=== PATIENT | female | born 1975 | race African-American/Black ===

== ENCOUNTER 2019-04-07 19:14 | Emergency (ER) | payer SELFPAY ==
[~2019-04-07] VITALS: Ht 154.9 cm; Wt 49.9 kg
[2019-04-07 19:32] VITALS: BP 172/90
[2019-04-07 19:41] LABS: BILIRUBIN,URINE SMALL (NEG); CLARITY,URINE CLEAR; COLOR,URINE AMBER; NITRITE,URINE NEGATIVE (NEG); PH,URINE 5.5; PROTEIN,URINE NEGATIVE (NEG-TRACE)
[2019-04-07 19:52] LABS: BACTERIA,URINE 0 /HPF (0-FEW); RBC,URINE 0 /HPF (0-2); SQUAMOUS EPITHELIAL CELL,UR OCC /LPF; WBC,URINE OCC /HPF (0-4)
--- NOTE | 2019-04-07 21:21 | PHYS DOC ---
Past Medical History Past Medical History: No Pertinent History Past Surgical History: No Surgical History Alcohol Use: Occasionally Drug Use: None Adult General Chief Complaint Chief Complaint: PAIN ON URINATION HPI HPI Patient is a 43 year old female no significant medical history who presents to the ED today complaining of generalized lower abdominal pain, urgency, frequency, dysuria, symptoms began 2 days ago. Also complaining of vomiting. Denies any chance she is . Denies any concerns for STDs. Review of Systems Review of Systems Constitutional: Denies fever or chills [] Eyes: Denies change in visual acuity, redness, or eye pain [] HENT: Denies nasal congestion or sore throat [] Respiratory: Denies cough or shortness of breath [] Cardiovascular: No additional information not addressed in HPI [] GI: Reports lower abdominal pain, vomiting, denies bloody stools or diarrhea [] reports dysuria, denies hematuria [] Musculoskeletal: Denies back pain or joint pain [] Integument: Denies rash or skin lesions [] Neurologic: Denies headache, focal weakness or sensory changes [] All other systems were reviewed and found to be within normal limits, except as documented in this note. Allergies Allergies Allergies Coded Allergies Type Severity Reaction Last Updated Verified No Known Drug Allergies 06/04/18 No Physical Exam Physical Exam Constitutional: Well developed, well nourished, no acute distress, non-toxic appearance. [] HENT: Normocephalic, atraumatic, bilateral external ears normal, oropharynx moist, no oral exudates, nose normal. [] Eyes: PERRLA, EOMI, conjunctiva normal, no discharge. [] Neck: Normal range of motion, no tenderness, supple, no stridor. [] Cardiovascular:Heart rate regular rhythm, no murmur [] Lungs & Thorax: Bilateral breath sounds clear to auscultation [] Abdomen: Bowel sounds normal, soft, no tenderness, no masses, no pulsatile masses. [] Pelvic exam External pelvic appears normal, cervix is visualized, closed, no CMT, no adnexal tenderness, trace amount of brownish discharge in the vaginal vault. Skin: Warm, dry, no erythema, no rash. [] Back: No tenderness, no CVA tenderness. [] Extremities: No tenderness, no cyanosis, no clubbing, ROM intact, no edema. [] Neurologic: Alert and oriented X 3, normal motor function, normal sensory funct ion, no focal deficits noted. [] Psychologic: Affect normal, judgement normal, mood normal. [] Current Patient Data Vital Signs Vital Signs Date Time Temp Pulse Resp B/P (MAP) Pulse Ox O2 Delivery O2 Flow Rate FiO2 04/07/19 19:32 98.2 94 16 172/90 (117) 99 Room Air 98.2 Lab Values Laboratory Tests Test 04/07/19 19:25 Urine Color Kerry Urine Clarity Clear Urine pH 5.5 Urine Specific Whitt 1.025 Urine Protein Negative mg/dL (NEG-TRACE) Urine Glucose (UA) Negative mg/dL (NEG) Urine Ketones (Stick) 40 mg/dL (NEG) Urine Blood Negative (NEG) Urine Nitrite Negative (NEG) Urine Bilirubin Small (NEG) Urine Urobilinogen Dipstick 1.0 mg/dL (0.2 mg/dL) Urine Leukocyte Esterase Negative (NEG) Urine RBC 0 /HPF (0-2) Urine WBC Occ /HPF (0-4) Urine Squamous Epithelial Cells Occ /LPF Urine Bacteria 0 /HPF (0-FEW) Microbiology 04/07/19 Wet Prep - Final, Complete EKG EKG [] Radiology/Procedures Radiology/Procedures [] Course & Med Decision Making Course & Med Decision Making Pertinent Labs and Imaging studies reviewed. (See chart for details) This is a 43-year-old female patient presented to the ED today with complaints of urgency, frequency, dysuria, lower abdominal pain, vomiting. Negative urine hCG, urine analysis is negative for infection. Wet prep noted for BV-discharge and Flagyl Pelvic ultrasound preliminary read noted for multiple fibroids, and endometrium cyst. Patient is discharged to home, provided OB for follow-up. Provided return precautions and discharged in stable condition. Dragon Disclaimer Dragon Disclaimer This electronic medical record was generated, in whole or in part, using a voice recognition dictation system. Departure Departure Impression: Primary Impression: Bacterial vaginosis Additional Impression: Fibroids Disposition: HOME, SELF-CARE Condition: STABLE Referrals: NO PCP (PCP) MAX DE ANDA MD follow up in 1 week Patient Instructions: Bacterial Vaginosis, [id number], Fibroids, [id number] Additional Instructions: You were evaluated in the emergency room, your urine analysis is negative for any infection, your ultrasound was noted for fibroids in the uterus, you also noted for endometrium cyst, these need to be followed up with an [facility], we provided you one. Take the prescribed medications as ordered. Ensure you complete your antibiotics for bacterial vaginosis. Scripts Tramadol Hcl (TRAMADOL HCL) 50 Mg Tablet 50 MG PO Q6HRS PRN for PAIN, #10 TAB Prov: GLENNA GOLDEN APRN 04/07/19 Metronidazole (FLAGYL) 500 Mg Tablet 1 TAB PO BID, #14 TAB Prov: GLENNA GOLDEN APRN 04/07/19 Problem Qualifiers GLENNA GOLDEN APRN Apr 07, 2019 21:21
[2019-04-07] MEDS ORDERED: METR500T PO (21:30)
[2019-04-07] MEDS ORDERED: TRAM50TA PO (21:30)
--- NOTE | 2019-04-07 21:45 | RAD ---
Ultrasound pelvis complete and transvaginal ultrasound HISTORY: Lower abdominal pain Sonographic examination was performed of the pelvis by transabdominal and endovaginal technique. Multiple static images were obtained. Ultrasound pelvis complete transabdominal: Uterus and ovaries are not seen by transabdominal technique. Transvaginal ultrasound pelvis: The myometrium of the uterus is heterogeneous. The endometrium measures 5 mm in thickness and there is a 2 x 3 mm cyst. There is 2 fibroids posterior fibroid measures 12 x 10 x 11 mm. Anterior fibroid measures 14 x 12 x 12 mm. The ovaries appear normal normal blood flow. The right ovary measures 2.6 x 1.8 x 1.1 cm. Left ovary measures 2.7 x 1.7 x 1.0 cm. There is no free fluid. IMPRESSION: 1. Fibroids in the uterus. 2. Heterogeneity of the myometrium is likely secondary to adenomyosis but may be incidental. 3. Small cyst in the endometrium. 4. No acute findings. This interpretation assumes the patient is not . Electronically signed by: Ralph Quiroga III, MD (04/07/2019 9:42 PM) [facility]
== END 2019-04-07 21:42 | disposition home or self-care (01) ==
LOC: ER 19:14
DX: N76.0 Acute vaginitis (principal); B96.89 Other specified bacterial agents as the cause of diseases classified elsewhere; D25.9 Leiomyoma of uterus, unspecified; R11.10 Vomiting, unspecified
CPT/HCPCS: 76830; 76856; 81001; 87491; 87591; 99285; Q0111

== ENCOUNTER 2019-05-16 03:48 | Emergency (ER) | payer SELFPAY ==
[~2019-05-16] VITALS: Ht 154.9 cm; Wt 49.9 kg
[~2019-05-16 03:48] MED LIST: METR500T PO; TRAM50TA PO
[2019-05-16 04:00] VITALS: BP 172/90
[2019-05-16] MEDS ORDERED: NEOMY/BACITR/POLYMYXIN OINT PACKET. TP ONE (04:30)
[2019-05-16] MEDS ORDERED: DIPHTH,PERTUSS(ACELL),TET TOX 0.5 ML DISP.SYRIN. VAX IM ONE (04:30)
[2019-05-16] MEDS ORDERED: LIDOCAINE 2%/EPI 1:100,000 20 ML VIAL. IJ ONE (04:30)
--- NOTE | 2019-05-16 05:02 | PHYS DOC ---
Past Medical History Past Medical History: No Pertinent History Past Surgical History: Additional Information: Nonsmoker Alcohol Use: Occasionally Drug Use: None Adult General Chief Complaint Chief Complaint: LACERATION/AVULSION HPI HPI 43-year-old female presents with report of finger laceration to palmar aspect of distal right middle finger which occurred just prior to arrival. 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 Patient reports significant bleeding to wound. Reports last tetanus shot greater than 5 years ago. Denies other complaint. Review of Systems Review of Systems Constitutional: Denies fever or chills Musculoskeletal: Reports finger pain Integument: Reports laceration to right middle finger Neurologic: Denies headache, focal weakness or sensory changes Complete systems were reviewed and found to be within normal limits, except as documented in this note. Current Medications Current Medications Current Medications Medications (Trade) Dose Ordered Sig/Yazmin Start Time Stop Time Status Last Admin Dose Admin Diphtheria/ Tetanus/Acell Pertussis (Boostrix) 0.5 ml ONCE ONCE 05/16/19 04:30 05/16/19 04:31 DC Lidocaine/ Epinephrine (LIDOCAINE 2%-EPI 1:100,000 multi-dose) 20 ml 1X ONCE 05/16/19 04:30 05/16/19 04:31 DC Neomycin/ Polymyxin/ Bacitracin (Triple Antibiotic Ointment) 1 pkt 1X ONCE 05/16/19 04:30 05/16/19 04:31 DC Allergies Allergies Allergies Coded Allergies Type Severity Reaction Last Updated Verified No Known Drug Allergies 06/04/18 No Physical Exam Physical Exam Constitutional: Well developed, well nourished, no acute distress, non-toxic appearance HENT: Normocephalic, atraumatic, oropharynx moist Eyes: Conjunctiva normal, no discharge Neck: Normal range of motion, no tenderness, supple Cardiovascular: Right radial pulse +2, CR of right middle finger < 2 sec Lungs & Thorax: No respiratory distress or increased work of breathing Skin: Warm, dry, no erythema, 3cm laceration/ flap noted to distal right middle finger- palmar aspect Extremities: Tenderness at site of laceration to right distal middle finger, Tendon intact, ROM intact, no edema Neurologic: Alert and oriented X 3, normal motor function, normal sensory function, no focal deficits noted Psychologic: Affect anxious, judgement normal Current Patient Data Vital Signs Vital Signs Date Time Temp Pulse Resp B/P (MAP) Pulse Ox O2 Delivery O2 Flow Rate FiO2 05/16/19 04:00 98.1 77 20 172/90 (117) 99 Room Air 98.1 EKG EKG [] Radiology/Procedures Radiology/Procedures [] Course & Med Decision Making Course & Med Decision Making Patient presents with laceration to right middle finger. Digital block performed with appropriate anesthesia. Laceration repaired with simple interrupted sutures. Patient tolerated procedure well and without difficulty. Empiric antibiotic ointment applied. Tetanus updated. Patient stable for discharge with outpatient follow-up with PCP. Discussed findings and plan with patient, who acknowledges understanding and agreement. Dragon Disclaimer TNT Crowdon Disclaimer This electronic medical record was generated, in whole or in part, using a voice recognition dictation system. Laceration/Wound Repair Laceration/Wound Repair : Wound Location: upper extremity (right middle finger) Wound's Depth, Shape: superficial, linear, flap Wound Length (cm): 3 Wound Explored: clean (no foreign body) Irrigated w/ Saline (ccs): 200 Anesthesia: Lidocaine w/ Epi (2%- Digital block) Volume Anesthetic (ccs): 2 Wound Debrided: minimal Wound Repaired With: sutures Suture Size/Type: 5:0, nylon Number of Sutures: 9 Sterile Dressing Applied?: Yes Progress Digital block with suture of distal finger tip: Verbal consent obtained. Time out performed. Hand hygiene utilized. ChloraPrep placed at base of right middle finger. Anesthesia obtained via a 25-gauge hypodermic needle with (2) mL's of lidocaine 2% with epinephrine to perform 4 nerve digital block. Patient tolerated procedure well and without difficulty. Appropriate anesthesia obtained. Wound cleaned with ChloraPrep. Copious irrigation performed. Wound well approximated with 5-0 Nylon x 9 sutures. Patient tolerated procedure well and without difficulty. Empiric antibiotic ointment applied prior to sterile dressing. Departure Departure Impression: Primary Impression: Finger laceration Disposition: 01 HOME, SELF-CARE Condition: STABLE Referrals: NO PCP (PCP) Patient Instructions: Laceration Care, Adult, [id number] Additional Instructions: Use over the counter Tylenol and Ibuprofen for pain or discomfort. Do not soak your wound. You may shower. Clean wound daily with soap and water. Change dressing 2 times daily. Use over the counter antibiotic ointment with each dressing change. Sutures need to be removed in 7 days. Present to your family doctor or local urgent care for removal. You may also present to the ED but it will be an additional visit/charge. After suture removal you may use Vitamin E ointment to soften the wound and prevent scarring. Problem Qualifiers Primary Impression: Finger laceration Encounter type: initial encounter Finger: middle finger Damage to nail status: without damage Foreign body presence: without foreign body Laterality: right Qualified Codes: S61.212A - Laceration without foreign body of right middle finger without damage to nail, initial encounter JUAN BERGMAN DO May 16, 2019 05:02
== END 2019-05-16 05:44 | disposition home or self-care (01) ==
LOC: ER 03:48
DX: S61.212A Laceration without foreign body of right middle finger without damage to nail, initial encounter (principal); W26.0XXA Contact with knife, initial encounter; Y93.G1 Activity, food preparation and clean up; Y92.89 Other specified places as the place of occurrence of the external cause; Y99.8 Other external cause status
CPT/HCPCS: 12002; 90471; 90715; 99283; J3490

== ENCOUNTER 2019-05-28 21:59 | Emergency (ER) | payer SELFPAY ==
[~2019-05-28] VITALS: Ht 154.9 cm; Wt 49.9 kg
[2019-05-28 22:20] VITALS: BP 173/94
--- NOTE | 2019-05-28 23:40 | PHYS DOC ---
Past Medical History Past Medical History: No Pertinent History Past Surgical History: Alcohol Use: Heavy Drug Use: None Adult General Chief Complaint Chief Complaint: WOUND RECHECK/SUTURE REMOVAL HPI HPI Patient is a 43 year old [femalex] who presents with [sutures in right middle finger. Patient reports she has sutures placed 10 days ago, following cutting her finger with a knife while washing dishes. States the wound has been healing well, she has not had any bleeding at that time. States she has full sensation in digit, has some discomfort on trying to straighten. denies additional concerns] Review of Systems Review of Systems Constitutional: Denies fever or chills [] Musculoskeletal: Denies back pain or joint pain [] Integument: Denies rash or skin lesions, sutures in place to finger [] Neurologic: Denies headache, focal weakness or sensory changes [] All other systems were reviewed and found to be within normal limits, except as documented in this note. Allergies Allergies Allergies Coded Allergies Type Severity Reaction Last Updated Verified No Known Drug Allergies 06/04/18 No Physical Exam Physical Exam Constitutional: Well developed, well nourished, no acute distress, non-toxic a ppearance. [] Skin: Warm, dry, no erythema, no rash. [address], intact to right middle finger, at the DIP, in U shape. No active bleeding. No purulence noted. Appears well-healing.[] Extremities: No tenderness, no cyanosis, no clubbing, ROM intact, no edema. [] Neurologic: Alert and oriented X 3, normal motor function, normal sensory function, no focal deficits noted. [] Psychologic: Affect normal, judgement normal, mood normal. [] Current Patient Data Vital Signs Vital Signs Date Time Temp Pulse Resp B/P (MAP) Pulse Ox O2 Delivery O2 Flow Rate FiO2 05/28/19 22:20 98.1 68 14 173/94 (120) 98 Room Air 98.1 EKG EKG [] Radiology/Procedures Radiology/Procedures [] Course & Med Decision Making Course & Med Decision Making Pertinent Labs and Imaging studies reviewed. (See chart for details) [9 sutures removed, wound remains well approximated. No bleeding noted. Discussed continue to keep wound clean, apply managed to prevent any pulling, follow-up with primary care as needed patient no further questions or concerns Dragon Disclaimer Dragon Disclaimer This electronic medical record was generated, in whole or in part, using a voice recognition dictation system. Departure Departure Impression: Primary Impression: Visit for suture removal Disposition: HOME, SELF-CARE Condition: GOOD Referrals: NO PCP (PCP) Patient Instructions: Suture Removal-Brief Additional Instructions: As we discussed, continue to wear a Band-Aid over that wound to keep from catching on anything. Follow-up with her primary care provider as needed. Work note for the next 5 days to keep the wound protected MARY CASTANON APRN May 28, 2019 23:40
== END 2019-05-28 23:49 | disposition home or self-care (01) ==
LOC: ER 21:59
DX: S61.212D Laceration without foreign body of right middle finger without damage to nail, subsequent encounter (principal); W26.0XXD Contact with knife, subsequent encounter
CPT/HCPCS: 99281

== ENCOUNTER 2019-06-10 16:55 | Emergency (ER) | payer SELFPAY ==
[~2019-06-10] VITALS: Ht 167.6 cm; Wt 49.9 kg
[2019-06-10 17:21] LABS: BASO % 1 % (0-3); EOS # 0.1 x10^3/uL (0.0-0.7); EOS % 2 % (0-3); HEMATOCRIT 35.2 % (36.0-47.0); HEMOGLOBIN 11.8 g/dL (12.0-15.5); LYMPH # 1.5 x10^3/uL (1.0-4.8); LYMPH % 32 % (24-48); MEAN CORPUSCULAR HEMOGLOBIN 30 pg (25-35); MEAN CORPUSCULAR HGB CONC 33 g/dL (31-37); MEAN CORPUSCULAR VOLUME 90 fL (79-100); MONO # 0.4 x10^3/uL (0.0-1.1); MONO % 9 % (0-9); NEUT # 2.6 x10^3/uL (1.8-7.7); NEUT % 57 % (31-73); PLATELET COUNT 209 x10^3/uL (140-400); RED BLOOD COUNT 3.93 x10^6/uL (3.50-5.40); RED CELL DISTRIBUTION WIDTH 16.3 % (11.5-14.5); WHITE BLOOD COUNT 4.6 x10^3/uL (4.0-11.0)
[2019-06-10 17:31] LABS: CALCIUM 9.6 mg/dL (8.5-10.1); CREATININE 1.1 mg/dL (0.6-1.0)
[2019-06-10 17:37] LABS: ALBUMIN 3.6 g/dL (3.4-5.0); ALBUMIN/GLOBULIN RATIO 0.7 (1.0-1.7); TOTAL BILIRUBIN 1.3 mg/dL (0.2-1.0); TOTAL PROTEIN 8.6 g/dL (6.4-8.2)
[2019-06-10] MEDS ORDERED: POTASSIUM CHLORIDE 20 MEQ TABLET.ER. PO ONE (19:00)
--- NOTE | 2019-06-10 19:13 | PHYS DOC ---
Past Medical History Past Medical History: No Pertinent History, Seizure Past Surgical History: Alcohol Use: Heavy Drug Use: None Adult General Chief Complaint Chief Complaint: SEIZURE HPI HPI Patient is a 43 year old female with history of seizures who presents to the ED to be evaluated today after being found on the side of the road with the bystander having a seizure. Patient states she felt the seizure come on. No clear idea of how long it lasted but the bystander reports maybe 1-2 minutes though they state the bystander did not physically time the seizure. Patient states she has mild pain to her hands and knees. She also has a laceration on the lower lip. Review of Systems Review of Systems Constitutional: Denies fever or chills [] Eyes: Denies change in visual acuity, redness, or eye pain [] HENT: Denies nasal congestion or sore throat [] Respiratory: Denies cough or shortness of breath [] Cardiovascular: No additional information not addressed in HPI [] GI: Denies abdominal pain, nausea, vomiting, bloody stools or diarrhea [] : Denies dysuria or hematuria [] Musculoskeletal: Denies back pain or joint pain [] Integument: Denies rash or skin lesions [] Neurologic: Reports seizure. Denies headache, focal weakness or sensory changes [] All other systems were reviewed and found to be within normal limits, except as documented in this note. Current Medications Current Medications Current Medications Medications (Trade) Dose Ordered Sig/Yazmin Start Time Stop Time Status Last Admin Dose Admin Potassium Chloride (Klor-Con) 40 meq 1X ONCE 06/10/19 19:00 06/10/19 19:01 DC 06/10/19 19:07 40 MEQ Allergies Allergies Allergies Coded Allergies Type Severity Reaction Last Updated Verified No Known Drug Allergies 06/04/18 No Physical Exam Physical Exam Constitutional: Well developed, well nourished, no acute distress, non-toxic appearance. [] HENT: Normocephalic, atraumatic, bilateral external ears normal, oropharynx mois t, no oral exudates, nose normal. [] Eyes: PERRLA, EOMI, conjunctiva normal, no discharge. [] Neck: Normal range of motion, no tenderness, supple, no stridor. [] Cardiovascular:Heart rate regular rhythm, no murmur [] Lungs & Thorax: Bilateral breath sounds clear to auscultation [] Abdomen: Bowel sounds normal, soft, no tenderness, no masses, no pulsatile masses. [] Skin: Superficial laceration noted on the right lower inner lip. Warm, dry, no erythema, no rash. [] Back: No tenderness, no CVA tenderness. [] Extremities: No tenderness, no cyanosis, no clubbing, ROM intact, no edema. [] Neurologic: Alert and oriented X 3, normal motor function, normal sensory function, no focal deficits noted. Cranial nose 2 through 12 intact. Psychologic: Affect normal, judgement normal, mood normal. [] Current Patient Data Vital Signs Vital Signs Date Time Temp Pulse Resp B/P (MAP) Pulse Ox O2 Delivery O2 Flow Rate FiO2 06/10/19 18:31 72 100 06/10/19 17:12 173/94 (120) Lab Values Laboratory Tests Test 06/10/19 17:05 06/10/19 17:40 White Blood Count 4.6 x10^3/uL (4.0-11.0) Red Blood Count 3.93 x10^6/uL (3.50-5.40) Hemoglobin 11.8 g/dL (12.0-15.5) L Hematocrit 35.2 % (36.0-47.0) L Mean Corpuscular Volume 90 fL (79-100) Mean Corpuscular Hemoglobin 30 pg (25-35) Mean Corpuscular Hemoglobin Concent 33 g/dL (31-37) Red Cell Distribution Width 16.3 % (11.5-14.5) H Platelet Count 209 x10^3/uL (140-400) Neutrophils (%) (Auto) 57 % (31-73) Lymphocytes (%) (Auto) 32 % (24-48) Monocytes (%) (Auto) 9 % (0-9) Eosinophils (%) (Auto) 2 % (0-3) Basophils (%) (Auto) 1 % (0-3) Neutrophils # (Auto) 2.6 x10^3/uL (1.8-7.7) Lymphocytes # (Auto) 1.5 x10^3/uL (1.0-4.8) Monocytes # (Auto) 0.4 x10^3/uL (0.0-1.1) Eosinophils # (Auto) 0.1 x10^3/uL (0.0-0.7) Basophils # (Auto) 0.0 x10^3/uL (0.0-0.2) Sodium Level 134 mmol/L (136-145) L Potassium Level 3.0 mmol/L (3.5-5.1) L Chloride Level 94 mmol/L (98-107) L Carbon Dioxide Level 23 mmol/L (21-32) Anion Gap 17 (6-14) H Blood Urea Nitrogen 7 mg/dL (7-20) Creatinine 1.1 mg/dL (0.6-1.0) H Estimated GFR (Cockcroft-Gault) 65.0 BUN/Creatinine Ratio 6 (6-20) Glucose Level 141 mg/dL (70-99) H Calcium Level 9.6 mg/dL (8.5-10.1) Total Bilirubin 1.3 mg/dL (0.2-1.0) H Aspartate Amino Transferase (AST) 45 U/L (15-37) H Alanine Aminotransferase (ALT) 19 U/L (14-59) Alkaline Phosphatase 69 U/L (46-116) Total Protein 8.6 g/dL (6.4-8.2) H Albumin 3.6 g/dL (3.4-5.0) Albumin/Globulin Ratio 0.7 (1.0-1.7) L Ethyl Alcohol Level < 10 mg/dL (0-10) Lactic Acid Level 2.1 mmol/L (0.4-2.0) H Laboratory Tests 06/10/19 17:05 Laboratory Tests 06/10/19 17:05 EKG EKG [] Radiology/Procedures Radiology/Procedures [] Course & Med Decision Making Course & Med Decision Making Pertinent Labs and Imaging studies reviewed. (See chart for details) This is a 43-year-old female patient well known history of seizures who presents today after having a seizure. Patient does not take any medications for seizures, she states this is due to insurance issues. She does not know the name of the medicine she is supposed to be on it on she has never followed up with a neurologist as recommended. There is no acute findings in her workup. Dragon Disclaimer Dragon Disclaimer This electronic medical record was generated, in whole or in part, using a voice recognition dictation system. Departure Departure Impression: Primary Impression: Seizure Additional Impression: Lip laceration Disposition: HOME, SELF-CARE Condition: STABLE Referrals: NO PCP (PCP) ANGEL URBINA MD Call him on Thursday and set up a follow up appointment Patient Instructions: Seizure, Adult Additional Instructions: You were evaluated in the emergency room for seizure. We highly recommend you contact the provided neurologist on Thursday and set up a follow-up appointment. Problem Qualifiers Additional Impression: Lip laceration Encounter type: initial encounter Qualified Codes: S01.511A - Laceration without foreign body of lip, initial encounter GLENNA GOLDEN SUPERVISOR TYPE PHOTOGRAPHY Jun 10, 2019 19:13
[2019-06-10 19:15] VITALS: BP 156/78
[2019-06-10 19:38] LABS: BILIRUBIN,URINE NEGATIVE (NEG); CLARITY,URINE CLEAR; COLOR,URINE YELLOW; NITRITE,URINE NEGATIVE (NEG); PROTEIN,URINE NEGATIVE (NEG-TRACE); UROBILINOGEN,URINE 0.2 mg/dL (0.2 mg/dL)
[2019-06-10 19:45] LABS: BARBITURATES NEG (NEG); BENZODIAZEPINES NEG (NEG); CANNABINOIDS NEG (NEG); COCAINE NEG (NEG); METHADONE NEG (NEG); OPIATES NEG (NEG); PHENCYCLIDINE NEG (NEG)
[2019-06-10 19:46] LABS: AMPHETAMINE/METHAMPHETAMINE NEG (NEG)
[2019-06-10 19:47] LABS: HYALINE CASTS, URINE MANY /HPF; SQUAMOUS EPITHELIAL CELL,UR MANY /LPF
[2019-06-10 19:48] LABS: BACTERIA,URINE MOD /HPF (0-FEW); RBC,URINE 0 /HPF (0-2)
== END 2019-06-10 19:33 | disposition home or self-care (01) ==
LOC: ER 16:55
DX: S01.511A Laceration without foreign body of lip, initial encounter (principal); R56.9 Unspecified convulsions; M25.561 Pain in right knee; M25.562 Pain in left knee; W10.1XXA Fall (on)(from) sidewalk curb, initial encounter; Y93.01 Activity, walking, marching and hiking; Y92.89 Other specified places as the place of occurrence of the external cause; Y99.8 Other external cause status
CPT/HCPCS: 36415; 80053; 80307; 81001; 83605; 85025; 99284; G0480